=== PATIENT | male | born 1960 | race Caucasian/White ===

== ENCOUNTER → 2018-10-12 | Outpatient (CLI) | payer BC ==
[2018-10-14 14:00] LABS: Stool Occult Bld Immuno 1 Negative (NEGATIVE)
== END | disposition home or self-care (01) ==
LOC: LAB SHORT 14:34 → LAB 14:34 → LAB SHORT 10-13 14:34
PROVIDERS: Family Medicine
DX: Z12.11 Encounter for screening for malignant neoplasm of colon (principal)
CPT/HCPCS: G0328

== ENCOUNTER 2019-04-20 06:58 | Day surgery (SDC) | payer BC ==
[~2019-04-20] VITALS: Ht 175.3 cm; Wt 69.6 kg
[~2019-04-20 06:58] MED LIST: NIFE10 PO; OMEP20ER PO; Prinivil10 MG PO
== END 2019-04-20 08:41 | disposition home or self-care (01) ==
LOC: ORSCSDS 06:58
DX: R13.10 Dysphagia, unspecified (principal); K22.2 Esophageal obstruction; K29.40 Chronic atrophic gastritis without bleeding; K21.9 Gastro-esophageal reflux disease without esophagitis; I10 Essential (primary) hypertension; E78.5 Hyperlipidemia, unspecified; Z79.899 Other long term (current) drug therapy; Z87.891 Personal history of nicotine dependence
CPT/HCPCS: 88305; 88342; C1726; J0330; J0461; J2250; J2405; J2704; J7120

== ENCOUNTER 2019-11-28 06:21 | Day surgery (SDC) | payer BC ==
[~2019-11-28] VITALS: Ht 172.7 cm; Wt 66.8 kg
== END 2019-11-28 10:03 | disposition home or self-care (01) ==
LOC: ORSCSDS 06:21
PROVIDERS: Orthopaedic Surgery
PROC: 0LX60ZZ Transfer Left Lower Arm and Wrist Tendon, Open Approach (ICD-10-PCS; principal; 2019-11-28 07:30)
PROC: 0RBT0ZZ Excision of Left Carpometacarpal Joint, Open Approach (ICD-10-PCS; principal; 2019-11-28 07:30)
DX: M18.12 Unilateral primary osteoarthritis of first carpometacarpal joint, left hand (principal); I10 Essential (primary) hypertension; F17.210 Nicotine dependence, cigarettes, uncomplicated; K21.9 Gastro-esophageal reflux disease without esophagitis; Z79.899 Other long term (current) drug therapy
CPT/HCPCS: C1713; J1100; J1885; J2250; J2370; J2405; J2704; J2795; J3010; J7120

== ENCOUNTER 2020-07-23 09:38 | Day surgery (SDC) | payer BC ==
[~2020-07-23] VITALS: Ht 172.7 cm; Wt 66.8 kg
== END 2020-07-23 12:49 | disposition home or self-care (01) ==
LOC: ORSCSDS 09:38
PROVIDERS: Orthopaedic Surgery
PROC: 0XQG0ZZ Repair Right Wrist Region, Open Approach (ICD-10-PCS; principal; 2020-07-23 10:45)
PROC: 0LX70ZZ Transfer Right Hand Tendon, Open Approach (ICD-10-PCS; principal; 2020-07-23 10:45)
DX: M18.11 Unilateral primary osteoarthritis of first carpometacarpal joint, right hand (principal); I10 Essential (primary) hypertension; K21.9 Gastro-esophageal reflux disease without esophagitis; Z87.891 Personal history of nicotine dependence; Z79.899 Other long term (current) drug therapy
CPT/HCPCS: A9270-GY; C1713; J1885; J2250; J2310; J2370; J2405; J2704; J2795; J3010; J7120

== ENCOUNTER 2024-06-26 09:30 | Emergency (ER) | payer MEDICARE, OTHER ==
[~2024-06-26] VITALS: Ht 172.7 cm; Wt 71.7 kg
[2024-06-26 10:03] VITALS: BP 162/108
[2024-06-26 10:19] LABS: Source, Urine Clean Catch
[2024-06-26 10:30] LABS: BASOPHILS ABSOLUTE AUTO 0.06 K/mm3 (0.00-0.23); BASOPHILS PERCENT AUTO 1 % (0-2); EOSINOPHILS PERCENT AUTO 5 % (0-6); Hematocrit 42.3 % (37.0-53.0); Hemoglobin 14.2 g/dL (13.5-17.5); IMMATURE GRAN ABSOLUTE AUTO 0.01 K/mm3 (0.00-0.10); IMMATURE GRAN PERCENT AUTO 0 % (0-1); LYMPHOCYTES PERCENT AUTO 42 % (21-46); MONOCYTES ABSOLUTE AUTO 0.65 K/mm3 (0.16-1.47); MONOCYTES PERCENT AUTO 11 % (4-13); Mean Corpuscular HGB 31.3 pg (26.0-34.0); Mean Corpuscular HGB Conc 33.6 g/dL (31.5-36.5); Mean Corpuscular Volume 93 fL (80-100); Mean Platelet Volume 8.7 fL (9.1-12.4); NEUTROPHILS ABSOLUTE AUTO 2.56 K/mm3 (1.96-9.15); NEUTROPHILS PERCENT AUTO 41 % (41-73); Platelet Count 357 K/mm3 (150-400); RDW Coefficient Variation 12.6 % (11.7-14.2); RDW Standard Deviation 43.3 fL (35.1-46.3); Red Blood Cell Count 4.53 M/mm3 (4.30-5.90); White Blood Cell Count 6.18 K/mm3 (4.00-11.30)
[2024-06-26 11:07] LABS: Albumin, Blood 3.6 g/dL (3.4-5.0); Appearance, Urine Clear (Clear); Bilirubin, Total 0.5 mg/dL (0.1-1.0); Bilirubin, Urine Neg (Neg); Blood, Urine 5+ (Neg); Bun/Creatinine Ratio 11.4 (12.0-20.0); Calcium, Blood 8.8 mg/dL (8.5-10.1); Color, Urine Yellow (P-Yellow); Creatinine, Blood 0.88 mg/dL (0.60-1.20); Globulin, Blood 3.5 g/dL (2.2-4.0); Glucose Qualitative, Urine Neg (Neg); Ketones, Urine Neg (Neg); Leukocyte Esterase, Urine 1+ (Neg); Nitrite, Urine Neg (Neg); Potassium, Blood 4.5 mmol/L (3.5-5.5); Protein, Urine Neg (Neg); Total Protein, Blood 7.1 g/dL (6.4-8.2); Urobilinogen, Urine NORM (Normal)
[2024-06-26 11:42] LABS: Red Blood Cells, Urine 25-50 /hpf (0-2)
[2024-06-26 11:43] LABS: Squamous Epithelial Cells Rare /hpf (Few)
[2024-06-26 11:44] LABS: Bacteria Few /hpf; Mucus Light (0-Heavy)
== END 2024-06-26 12:03 | disposition home or self-care (01) ==
LOC: ER 09:30
PROVIDERS: Physician Assistant
DX: R31.9 Hematuria, unspecified (principal); F17.220 Nicotine dependence, chewing tobacco, uncomplicated; Z88.8 Allergy status to other drugs, medicaments and biological substances; Z91.030 Bee allergy status; Z91.013 Allergy to seafood; Z79.899 Other long term (current) drug therapy
CPT/HCPCS: 80053; 81001; 85025; 87086; 99283

== ENCOUNTER 2024-07-20 09:55 | Day surgery (SDC) | payer MEDICARE, OTHER ==
[~2024-07-20] VITALS: Ht 172.7 cm; Wt 71.1 kg
[~2024-07-20 09:55] MED LIST changes: +Lactated Ringer's 1,000 ML IV ONE; +propofoL 50 ML IV ONE
[2024-07-20] MEDS ORDERED: ATOR20 PO (10:15)
[2024-07-20] MEDS ORDERED: ELIQUIS5 M2 (10:15)
[2024-07-20] MEDS ORDERED: ATEN25 PO (10:15)
[2024-07-20] MEDS ORDERED: PANT20 (10:16)
[2024-07-20] MEDS ORDERED: EPIPEN0.3 MG/0.3 (10:16)
[2024-07-20] MEDS ORDERED: Lactated Ringer's 1,000 ML IV ONE ×2 (10:57→12:14)
[2024-07-20] MEDS ORDERED: Midazolam HCL 1 MG/ML 5MLVIAL ONE (11:22)
--- NOTE | 2024-07-20 12:48 | NUR ---
07/20/24 1248 Lit Deleon INJECTED 6MLS NS FOR POLYPECTOMY
[2024-07-20] MEDS ORDERED: propofoL 50 ML IV ONE (12:50)
[2024-07-20 16:09] VITALS: BP 128/81
== END 2024-07-20 13:27 | disposition home or self-care (01) ==
LOC: ORSCSDS 09:55
PROVIDERS: Internal Medicine Gastroenterology
PROC: 0D758ZZ Dilation of Esophagus, Via Natural or Artificial Opening Endoscopic (ICD-10-PCS; principal; 2024-07-20 11:00)
PROC: 0DBH8ZX Excision of Cecum, Via Natural or Artificial Opening Endoscopic, Diagnostic (ICD-10-PCS; principal; 2024-07-20 11:00)
PROC: 0DB58ZX Excision of Esophagus, Via Natural or Artificial Opening Endoscopic, Diagnostic (ICD-10-PCS; principal; 2024-07-20 11:00)
PROC: 0DBK8ZX Excision of Ascending Colon, Via Natural or Artificial Opening Endoscopic, Diagnostic (ICD-10-PCS; principal; 2024-07-20 11:00)
PROC: 0DBL8ZX Excision of Transverse Colon, Via Natural or Artificial Opening Endoscopic, Diagnostic (ICD-10-PCS; principal; 2024-07-20 11:00)
PROC: 0DBP8ZX Excision of Rectum, Via Natural or Artificial Opening Endoscopic, Diagnostic (ICD-10-PCS; principal; 2024-07-20 11:00)
DX: Z12.11 Encounter for screening for malignant neoplasm of colon (principal); R13.10 Dysphagia, unspecified; K22.2 Esophageal obstruction; K21.9 Gastro-esophageal reflux disease without esophagitis; D12.3 Benign neoplasm of transverse colon; D12.0 Benign neoplasm of cecum; D12.2 Benign neoplasm of ascending colon; K62.1 Rectal polyp; Z86.711 Personal history of pulmonary embolism; Z79.01 Long term (current) use of anticoagulants; F17.210 Nicotine dependence, cigarettes, uncomplicated; Z79.899 Other long term (current) drug therapy; I10 Essential (primary) hypertension; E78.5 Hyperlipidemia, unspecified; I25.2 Old myocardial infarction; D75.839 Thrombocytosis, unspecified
CPT/HCPCS: 88305; C1726; J2250; J2704; J7120

== ENCOUNTER 2025-03-06 08:21 | Day surgery (SDC) | payer MEDICARE ==
[~2025-03-06] VITALS: Ht 175.3 cm; Wt 74.6 kg
[~2025-03-06 08:21] MED LIST changes: +ATEN25 PO; +ATOR20 PO; +ELIQUIS5 M2; +EPIPEN0.3 MG/0.3; -Lactated Ringer's 1,000 ML IV ONE; +PANT20; -propofoL 50 ML IV ONE
[2025-03-06 11:00] VITALS: BP 122/83
== END 2025-03-06 10:50 | disposition home or self-care (01) ==
LOC: ORSCSDS 08:21
PROVIDERS: Internal Medicine Gastroenterology
PROC: 0D758ZZ Dilation of Esophagus, Via Natural or Artificial Opening Endoscopic (ICD-10-PCS; principal; 2025-03-06 09:45)
PROC: 0DB58ZX Excision of Esophagus, Via Natural or Artificial Opening Endoscopic, Diagnostic (ICD-10-PCS; principal; 2025-03-06 09:45)
DX: K20.0 Eosinophilic esophagitis (principal); K22.2 Esophageal obstruction; I10 Essential (primary) hypertension; E78.5 Hyperlipidemia, unspecified; I47.10 Supraventricular tachycardia, unspecified; Z86.711 Personal history of pulmonary embolism; Z79.01 Long term (current) use of anticoagulants; Z79.899 Other long term (current) drug therapy
CPT/HCPCS: 88305; C1726; J2704; J7120